=== PATIENT | female | born 1970 | race American Indian/Alaskan Native ===

== ENCOUNTER 2017-04-20 18:19 | Observation (INO) | payer BC, OTHER ==
[2017-04-20 18:19] VITALS: BMI 44.1
--- NOTE | 2017-04-20 18:32 | C.PDOC ---
History Of Present Illness 46 y/o female an employee of [employer] presents to the ED with complaints of anterior chest wall pain intermittently since last night. Pain is sharp 6/10 , occasionally radiates to left shoulder. Pt denies associated SOB, lightheadedness, dizziness, sweating, headache, nausea, vomiting, fever, chills , or any other complaints. No prior cardiac history. Patient with refractory HTN as per primary provider, also with hx of CAD maternal side. Time Seen by Provider: 04/20/17 18:23 Chief Complaint (Nursing): Chest Pain History Per: Patient History/Exam Limitations: no limitations Onset/Duration Of Symptoms: Hrs, Intermittent Episodes Current Symptoms Are (Timing): Still Present Severity: Moderate Pain Scale Rating Of: 6 Quality: "Pain" Associated Symptoms: denies: Nausea, Diaphoresis Modifying Factors: None Alleviating Factors: None Recent travel outside of the [place]: No Past Medical History Reviewed: Historical Data, Nursing Documentation, Vital Signs Vital Signs: Last Vital Signs Temp 98.9 F 04/20/17 18:21 Pulse 80 04/20/17 18:53 Resp 14 04/20/17 18:53 BP 176/111 H 04/20/17 18:53 Pulse Ox 100 04/20/17 18:53 - Medical History PMH: HTN Family History: States: Unknown Family Hx - Social History Hx Tobacco Use: No Hx Alcohol Use: Yes (SOCIAL) Hx Substance Use: No - Immunization History Hx Tetanus Toxoid Vaccination: Yes Hx Influenza Vaccination: No Hx Pneumococcal Vaccination: No Review Of Systems Except As Marked, All Systems Reviewed And Found Negative. Constitutional: Negative for: Fever, Chills, Sweats Cardiovascular: Positive for: Chest Pain. Negative for: Light Headedness Gastrointestinal: Negative for: Nausea, Vomiting Neurological: Negative for: Headache, Dizziness Physical Exam - Physical Exam Appears: Non-toxic, In Acute Distress, Other (obese) Skin: Warm, Dry, No Rash Head: Atraumatic, Normacephalic Neck: Normal, Normal ROM, Supple Chest: Symmetrical, Tenderness (anterior chest wall) Cardiovascular: Rhythm Regular, No Murmur Respiratory: Normal Breath Sounds, No Rales, No Rhonchi, No Wheezing Gastrointestinal/Abdominal: Normal Exam, Soft, No Tenderness Extremity: Normal ROM, No Pedal Edema Extremity: Bilateral: Atraumatic Neurological/Psych: Oriented x3, Normal Speech ED Course And Treatment - Laboratory Results Result Diagrams: 04/20/17 18:36 04/20/17 18:36 ECG: Interpreted By Me, Viewed By Me ECG Rhythm: Sinus Rhythm Interpretation Of ECG: left axis deviation, inferior Q waves Rate From EC (BPM) O2 Sat by Pulse Oximetry: 99 (room air) Pulse Ox Interpretation: Normal Progress Note: Plan: EKG, labs, CXR, UA, IV fluids Medical Decision Making Medical Decision Making: Spoke with Kenneth Watson, he request Dr. Hardy for cardiology and the hospitalist service. Disposition Discussed With DrDeshawn: Kenneth Watson - Disposition Disposition: HOSPITALIZED Disposition Time: 18:37 Condition: GUARDED - POA Present On Arrival: None - Clinical Impression Clinical Impression: Chest pain, EKG abnormality - Scribe Statement The provider has reviewed the documentation as recorded by the Vernell Malone Provider Attestation: All medical record entries made by the Dmitriibe were at my direction and personally dictated by me. I have reviewed the chart and agree that the record accurately reflects my personal performance of the history, physical exam, medical decision making, and the department course for this patient. I have also personally directed, reviewed, and agree with the discharge instructions and disposition. Decision To Admit - Pt Status Changed To: Hospital Disposition Of: Observation - . Bed Request Type: Telemetry Admitting Physician: Alfa Sanford Patient Diagnosis: Chest pain, EKG abnormality
[2017-04-20 18:41] LABS: BASO # 0.1 K/uL (0.0-0.2); BASO % 0.4 % (0.0-2.0); HEMATOCRIT 39.5 % (34.0-47.0); LYMPH # 1.8 K/uL (1.0-4.3); LYMPH % 11.8 % (20.0-40.0); MEAN CELL VOLUME 86.8 fL (81.0-99.0); MEAN CORPUSCULAR HEMOGLOBIN 27.8 pg (27.0-31.0); MEAN PLATELET VOLUME 8.9 fL (7.2-11.7); MONO # 0.3 K/uL (0.0-0.8); MONO % 2.2 % (0.0-10.0); WHITE BLOOD COUNT 14.8 K/uL (4.8-10.8)
[2017-04-20 18:50] LABS: CHLORIDE 106 mmol/L (98-107); POTASSIUM 3.6 mmol/L (3.6-5.2); SODIUM 137 mmol/L (132-148)
[2017-04-20 18:52] LABS: ALB/GLOB RATIO 1.1 (1.0-2.1); AST/SGOT 50 U/L (14-36); BILIRUBIN,TOTAL 0.5 mg/dL (0.2-1.3); BLOOD UREA NITROGEN 11 mg/dL (7-17); CARBON DIOXIDE 19 mmol/L (22-30); CHOLESTEROL 194 mg/dL (0-199); GFR AFRICAN-AMERICAN > 60; TOTAL PROTEIN 8.1 g/dL (6.3-8.3)
[2017-04-20 18:53] LABS: ALKALINE PHOSPHATASE 80 U/L (38-126); ALT/SGPT 15 U/L (9-52); CALCIUM 9.3 mg/dl (8.6-10.4); GLUCOSE,RANDOM 114 mg/dL (65-105)
[2017-04-20] MEDS ORDERED: Labetalol 25mg/5ml Syringe IVP STA (18:57)
[2017-04-20] MEDS ORDERED: Labetalol 25mg/5ml Syringe ONE (18:58)
--- NOTE | 2017-04-20 19:23 | CP.PCM.HP ---
History of Present Illness - History of Present Illness History of Present Illness: CC: chest pain HPI: 46 year old female with PMHx significant for HTN presents with chest pain of about 1 hr duration that began while resting last night. Patient states that she could not remember any strenuous activity at the time, but rather that she was cooking just prior to. She denies any identifiable stressors either. She states that she took an aspirin and then went to bed hoping that the pain would go away. She woke up this morning with the pain off and on through the day. She was concerned and then came to the ED. Patient states that the pain was initially a 6/10 and denied radiation. The pain was not exacerbated or relieved by anything. She denied nausea at the time, however she now admits to nausea approximately two hours prior to evaluation. When asked why she delayed coming to the ED, she states that she thought that it would resolve on it's own with rest. Patient admits to experiencing a similar pain several years ago, whereupon at that time, she went to bed and slept hoping that the pain would resolve on it own. Patient denies headaches, palpitations, subjective fevers, vomiting, abdominal pain, bowel changes, back pain, leg pain, swelling, recent travel, recent sickness or exposure to sick contacts, weight changes or appetite changes at this time. PMHx- as stated above PSHx- denies Fam Hx- Mom- vaginal cancer, HTN Social Hx- admits to social alcohol use, denies ever smoking or illicit drug use Meds: Nifedipine 90 mg daily Allergies- denies PMD: Dr. Watson Present on Admission - Present on Admission Any Indicators Present on Admission: No Review of Systems - Constitutional Constitutional: absent: Headache - EENT Eyes: absent: Blurred Vision, Change in Vision Ears: absent: Decreased Hearing Nose/Mouth/Throat: absent: Nasal Congestion - Cardiovascular Cardiovascular: Chest Pain. absent: Pain Radiating to Arm/Neck/Jaw, Leg Edema, Palpitations - Respiratory Respiratory: absent: Cough, Dyspnea, Dyspnea on Exertion - Gastrointestinal Gastrointestinal: Nausea. absent: Abdominal Pain, Vomiting - Musculoskeletal Musculoskeletal: absent: Abnormal Gait, Arthralgias - Integumentary Integumentary: absent: Dry Skin - Neurological Neurological: absent: Abnormal Hearing, Paresthesias - Endocrine Endocrine: absent: Change in Body Appearance, Fatigue, Palpitations - Hematologic/Lymphatic Hematologic: absent: Easy Bleeding, Easy Bruising Past Patient History - Infectious Disease Hx of Infectious Diseases: None - Past Social History Smoking Status: Never Smoked Alcohol: Social Drugs: Denies Home Situation {Lives}: With Family - CARDIAC Hx Hypertension: Yes - PSYCHIATRIC Hx Substance Use: No - SURGICAL HISTORY Hx Surgeries: No - ANESTHESIA Hx Anesthesia: No Meds Allergies/Adverse Reactions: Allergies Allergy/AdvReac Type Severity Reaction Status Date / Time No Known Allergies Allergy Verified 04/20/17 18:25 Physical Exam - Constitutional Appears: No Acute Distress - Head Exam Head Exam: ATRAUMATIC, NORMAL INSPECTION, NORMOCEPHALIC - Eye Exam Eye Exam: EOMI, Normal appearance, PERRL Pupil Exam: NORMAL ACCOMODATION - ENT Exam ENT Exam: Mucous Membranes Moist - Neck Exam Neck exam: Positive for: Full Rom Additional comments: acanthosis nigricans noted - Respiratory Exam Respiratory Exam: NORMAL BREATHING PATTERN. absent: Wheezes - Expanded Cardiovascular Exam Expanded Peripheral pulses: Dorsalis Pedis Left: 2+, Dorsalis Pedis Right: 2+ - GI/Abdominal Exam GI & Abdominal Exam: Normal Bowel Sounds, Soft. absent: Guarding, Tenderness - Extremities Exam Extremities exam: Positive for: full ROM, normal capillary refill, normal inspection, pedal pulses present. Negative for: calf tenderness, pedal edema, tenderness - Back Exam Back exam: FULL ROM, NORMAL INSPECTION Additional comments: hyperpigmented - Neurological Exam Neurological exam: Alert, CN II-XII Intact, Oriented x3 - Psychiatric Exam Psychiatric exam: Normal Affect, Normal Mood - Skin Skin Exam: Dry, Warm Additional comments: hyperpigmented patch posterior back Results - Vital Signs Recent Vital Signs: Last Vital Signs Temp 98.9 F 04/20/17 18:21 Pulse 80 04/20/17 18:53 Resp 14 04/20/17 18:53 BP 176/111 H 04/20/17 18:53 Pulse Ox 99 04/20/17 19:03 - Labs Result Diagrams: 04/20/17 18:36 04/20/17 18:36 Labs: Laboratory Results - last 24 hr 04/20/17 04/20/17 18:36 18:36 WBC 14.8 H D RBC 4.55 Hgb 12.6 Hct 39.5 MCV 86.8 MCH 27.8 MCHC 32.0 L RDW 14.0 Plt Count 343 D MPV 8.9 Neut % (Auto) 85.6 H Lymph % (Auto) 11.8 L [place] % (Auto) 2.2 Eos % (Auto) 0.0 Baso % (Auto) 0.4 Neut # 12.7 H Lymph # 1.8 [place] # 0.3 Eos # 0.0 Baso # 0.1 Sodium 137 Potassium 3.6 Chloride 106 Carbon Dioxide 19 L Anion Gap 16 BUN 11 Creatinine 0.8 Est GFR ( Amer) > 60 Est GFR (Non-Af Amer) > 60 Random Glucose 114 H Calcium 9.3 Total Bilirubin 0.5 AST 50 H D ALT 15 Alkaline Phosphatase 80 NT-Pro-B Natriuret Pep 357 Total Protein 8.1 Albumin 4.2 Globulin 4.0 H Albumin/Globulin Ratio 1.1 Triglycerides 67 Cholesterol 194 LDL Cholesterol Direct 81 HDL Cholesterol 70 Assessment & Plan (1) NSTEMI (non-ST elevated myocardial infarction) Assessment and Plan: Chest pain noted at rest. Resolved Admitted to telemetry floor Troponin elevated 1.4400. F/U MALAIKA 2-3 EKG findings indicative of NSR with Q waves noted, no ST segment elevations identified. Refer to EKG. F/U repeat EKGs. ASA 324 given in ED ASA 81 mg to continue, Plavix 300 mg daily to start and then Plavix 75 mg daily from 04/21 onwards, Metoprolol 25 mg PO daily, Zestril 5 mg PO daily, , Crestor 5 mg PO HS, Lovenox 90 mg SC Q12 Nitro x1 given for pain- Will hold going ahead to assess patient's pain source, frequency and severity. Dr. Hardy (Cardiology) consulted- F/U F/U AM labs, CK MB, Lipid panel, Hgb A1c, Thyroid studies CXR: No signs of acute disease Cont to monitor Status: Acute (2) HTN (hypertension) Assessment and Plan: Home medication: Procardia 90 mg PO daily. Will hold at this time. Labetalol 20 IV given in ED Currently on Metoprolol and Zestril for cardio protection. Continue to monitor Status: Chronic (3) Headache Assessment and Plan: Acetaminophen PRN Cont to monitor. Likely secondary to Nitro administration earlier. Status: Acute (4) Prophylactic measure Assessment and Plan: SCDS Lovenox 90 SC Q12 Pepcid 20 mg PO BID Cont to monitor Status: Acute
[2017-04-20 20:12] LABS: RBC URINE 10 /hpf (0-3); TRANSITIONAL EPITHIAL < 1 /hpf (0-3); URINE BACTERIA RARE (<OCC); URINE BILIRUBIN NEGATIVE (NEGATIVE); URINE BLOOD 1+ (NEGATIVE); URINE COLOR Yellow (YELLOW); URINE GLUCOSE (UA) NORMAL (Normal); URINE KETONE 1+ mg/dL (NEGATIVE); URINE LEUKOCYTE ESTERASE NEGATIVE Leu/uL (Negative); URINE PROTEIN 2+ mg/dL (NEGATIVE); URINE UROBILINOGEN NORMAL mg/dL (0.2-1.0); WBC URINE 2 /hpf (0-5)
[2017-04-20] MEDS ORDERED: Nitroglycerin 2% Ointment Foilpak UD TOP PRN (20:30)
[2017-04-20] MEDS: Metoprolol Succinate 25 mg XL Tab PO SCH (20:57)
[2017-04-20 21:49] VITALS: RESP 20
[2017-04-20] MEDS: Enoxaparin 100 mg Syringe SC SCH (21:59)
[2017-04-20] MEDS ORDERED: Rosuvastatin Calcium 2.5 mg Tab PO SCH (22:00)
[2017-04-21 07:28] LABS: BASO # 0.1 K/uL (0.0-0.2); BASO % 0.7 % (0.0-2.0); EOS % 0.2 % (0.0-4.0); HEMATOCRIT 34.2 % (34.0-47.0); LYMPH # 2.7 K/uL (1.0-4.3); LYMPH % 29.5 % (20.0-40.0); MEAN CELL VOLUME 86.6 fL (81.0-99.0); MEAN CORPUSCULAR HGB CONC 32.3 g/dL (33.0-37.0); MEAN PLATELET VOLUME 9.1 fL (7.2-11.7); MONO # 0.6 K/uL (0.0-0.8); MONO % 6.4 % (0.0-10.0); RED CELL DISTRIBUTION WIDTH 14.1 % (11.5-14.5)
[2017-04-21 07:35] LABS: CHLORIDE 107 mmol/L (98-107)
[2017-04-21 07:36] LABS: POTASSIUM 3.2 mmol/L (3.6-5.2); SODIUM 139 mmol/L (132-148)
[2017-04-21 07:38] LABS: BILIRUBIN,TOTAL 0.7 mg/dL (0.2-1.3); CARBON DIOXIDE 22 mmol/L (22-30); CHOLESTEROL 160 mg/dL (0-199); GFR AFRICAN-AMERICAN > 60
[2017-04-21 07:39] LABS: ALB/GLOB RATIO 1.1 (1.0-2.1); ALKALINE PHOSPHATASE 59 U/L (38-126); ALT/SGPT 33 U/L (9-52); AST/SGOT 204 U/L (14-36); BLOOD UREA NITROGEN 14 mg/dL (7-17); GLUCOSE,RANDOM 97 mg/dL (65-105); PHOSPHOROUS 3.8 mg/dL (2.5-4.5); TOTAL PROTEIN 6.8 g/dL (6.3-8.3)
[2017-04-21 08:10] LABS: THYROID STIMULATING HORMONE 0.97 mIU/L (0.46-4.68)
--- NOTE | 2017-04-21 08:46 | CP.PCM.CON ---
History of Present Illness - History of Present Illness History of Present Illness: I was asked to see patient by Dr. Tran. Patient is followed by Kenneth Watson APN who asked that I be contacted. Patient is a 46 year old female with a history of HTN who presents with chest pain, which started Saturday at 10 pm, pressure substernal with associated dyspnea. Patient states pain lasted for 30 minutes then resolved. Patient developed recurrent pain Saturday at 10 am and lasted throughout the day until she presented to ER at 7pm. EKG showed anterior, anterolateral and inferior infarction. Patient has been pain free since 7pm yesterday. Troponin elevated. Review of Systems - Constitutional Constitutional: absent: As Per HPI, Anorexia, Chills, Daytime Sleepiness, Excessive Sweating, Fatigue, Fever, Frequent Falls, Headache, Increased Appetite , Lethargy, Malaise, Night Sweats, Snoring, Sleep Apnea, Weight Gain, Weight Loss, Weakness, Other - EENT Eyes: absent: As Per HPI, Blind Spots, Blurred Vision, Change in Vision, Decreased Night Vision, Diplopia, Discharge, Dry Eye, Exophthalmos, Floaters, Irritation, Itchy Eyes, Loss of Peripheral Vision, Pain, Photophobia, Requires Corrective Lenses, Sees Flashes, Spots in Vision, Tunnel Vision, Other Visual Disturbances, Loss of Vision, Other Ears: absent: As Per HPI, Decreased Hearing, Ear Discharge, Ear Pain, Tinnitus, Abnormal Hearing, Disequilibrium, Dizziness, Other Nose/Mouth/Throat: absent: As Per HPI, Epistaxis, Nasal Congestion, Nasal Discharge, Nasal Obstruction, Nasal Trauma, Nose Pain, Post Nasal Drip, Sinus Pain, Sinus Pressure, Bleeding Gums, Change in Voice, Dental Pain, Dry Mouth, Dysphagia, Halitosis, Hoarsness, Lip Swelling, Mouth Lesions, Mouth Pain, Odynophagia, Sore Throat, Throat Swelling, Tongue Swelling, Facial Pain, Neck Pain, Neck Mass, Other - Breasts Breasts: absent: As Per HPI, Change in Shape, Mass, Pain, Nipple Discharge, Nipple Inversion, Skin Changes, Swelling, Other - Cardiovascular Cardiovascular: Dyspnea - Respiratory Respiratory: absent: As Per HPI, Cough, Dyspnea, Hemoptysis, Dyspnea on Exertion , Wheezing, Snoring, Stridor, Pain on Inspiration, Chest Congestion, Excessive Mucous Production, Change in Mucous Color, Pain with Coughing, Other - Gastrointestinal Gastrointestinal: absent: As Per HPI, Abdominal Pain, Belching, Bloating, Change in Bowel Habits, Change in Stool Character, Coffee Ground Emesis, Constipation, Cramping, Diarrhea, Dyspepsia, Dysphagia, Early Satiety, Excessive Flatus, Fecal Incontinence, Heartburn, Hematemesis, Hematochezia, Loose Stools, Melena, Nausea, Odynophagia, Temesmus, Vomiting, Other - Genitourinary Genitourinary: absent: As Per HPI, Change in Urinary Stream, Difficulty Urinating, Dysuria, Flank Pain, Hematuria, Pyuria, Nocturia, Urinary Incontinence, Urinary Frequency, Urinary Hesitance, Urinary Urgency, Voiding Freq/Small Amts, Freq UTI, Hx Renal/Bladder Calculi, Hx /Renal Surgery, Bladder Distension, Other - Musculoskeletal Musculoskeletal: absent: As Per HPI, Abnormal Gait, Arthralgias, Atrophy, Back Pain, Deformity, Joint Swelling, Limited Range of Motion, Loss of Height, Muscle Cramps, Muscle Weakness, Myalgias, Neck Pain, Numbness, Radiating Pain into Limb, Stiffness, Tingling, Other - Integumentary Integumentary: absent: As Per HPI, Acne, Alopecia, Bleeding Lesions, Change in Hair, Change in Nails, Change in Pigmentation, Changing Lesions, Dry Skin, Erythema, Furuncle, Hirsutism, Lesions, New Lesions, Non-Healing Lesions, Photosensitivity, Pruritus, Rash, Skin Pain, Skin Ulcer, Sores, Striae, Swelling , Unusual Bruising, Wounds, Jaundice, Other - Neurological Neurological: absent: As Per HPI, Abnormal Gait, Abnormal Hearing, Abnormal Movements, Abnormal Speech, Behavioral Changes, Burning Sensations, Confusion, Convulsions, Disequilibrium, Dizziness, Numbness, Focal Weakness, Frequent Falls , Headaches, Lack of Coordination, Loss of Vision, Memory Loss, Paresthesias, Radicular Pain, Restless Legs, Sensory Deficit, Syncope, Tingling, Tremor, Vertigo, Weakness, Other Visual Disturbances, Other - Psychiatric Psychiatric: absent: As Per HPI, Abnormal Sleep Pattern, Anhedonia, Anxiety, Auditory Hallucinations, Behavioral Changes, Change in Appetite, Change in Libido, Confusion, Depression, Difficulty Concentrating, Hallucinations, Homicidal Ideation, Hopelessness, Irritability, Memory Loss, Mood Swings, Panic Attacks, Paranoia, Suicidal Ideation, Visual Hallucinations, Tactile Hallucinations, Other - Endocrine Endocrine: absent: As Per HPI, Change in Body Appearance, Change in Libido, Cold Intolorance, Deepening of Voice, Excessive Sweating, Fatigue, Flushing, Heat Intolorance, Increase in Ring/Shoe/Hat Size, Palpitations, Polydipsia, Polyphagia, Polyuria, Other - Hematologic/Lymphatic Hematologic: absent: As Per HPI, Easy Bleeding, Easy Bruising, Lymphadenopathy, Other Past Patient History - Infectious Disease Hx of Infectious Diseases: None - Past Social History Smoking Status: Never Smoked Alcohol: Social Drugs: Denies Home Situation {Lives}: With Family - CARDIAC Hx Hypertension: Yes - MUSCULOSKELETAL/RHEUMATOLOGICAL Hx Falls: No - PSYCHIATRIC Hx Substance Use: No - SURGICAL HISTORY Hx Surgeries: No - ANESTHESIA Hx Anesthesia: No Meds Allergies/Adverse Reactions: Allergies Allergy/AdvReac Type Severity Reaction Status Date / Time No Known Allergies Allergy Verified 04/20/17 18:25 - Medications Medications: Current Medications Acetaminophen (Tylenol 325mg Tab) 650 mg PO Q6 PRN PRN Reason: Headache Last Admin: 04/20/17 23:44 Dose: 650 mg Aspirin (Ecotrin) 81 mg PO DAILY [facility] Clopidogrel Bisulfate (Plavix) 75 mg PO DAILY [facility] Last Admin: 04/20/17 20:18 Dose: 75 mg Enoxaparin Sodium (Lovenox) 90 mg SC Q12 [facility] Last Admin: 04/20/17 21:59 Dose: 90 mg Famotidine (Pepcid) 20 mg PO BID [facility] Insulin Human Regular (Novolin R) 0 unit SC ACHS [facility] PRN Reason: Protocol Lisinopril (Zestril) 5 mg PO DAILY [facility] Last Admin: 04/20/17 20:57 Dose: 5 mg Metoprolol Succinate (Toprol Xl) 25 mg PO DAILY [facility] Last Admin: 04/20/17 20:57 Dose: 25 mg Pneumococcal Polyvalent Vaccine (Pneumovax 23 Vaccine) 0.5 ml IM .ONCE ONE Stop: 04/23/17 10:01 Potassium Chloride (K-Dur 20 Meq Er Tab) 40 meq PO Q4H [facility] Stop: 04/21/17 12:31 Rosuvastatin Calcium (Crestor) 5 mg PO HS [facility] Last Admin: 04/20/17 21:59 Dose: 5 mg Physical Exam - Constitutional Appears: Non-toxic - Head Exam Head Exam: NORMAL INSPECTION - Eye Exam Eye Exam: Normal appearance - ENT Exam ENT Exam: Mucous Membranes Moist - Neck Exam Neck exam: Positive for: Full Rom - Respiratory Exam Respiratory Exam: NORMAL BREATHING PATTERN - Cardiovascular Exam Cardiovascular Exam: REGULAR RHYTHM - GI/Abdominal Exam GI & Abdominal Exam: Normal Bowel Sounds - Rectal Exam Rectal Exam: Deferred - Extremities Exam Extremities exam: Negative for: pedal edema - Back Exam Back exam: NORMAL INSPECTION - Neurological Exam Neurological exam: Alert, Oriented x3 - Psychiatric Exam Psychiatric exam: Normal Affect - Skin Skin Exam: Normal Color Results - Vital Signs Recent Vital Signs: Last Vital Signs Temp 98.2 F 04/21/17 07:00 Pulse 75 04/21/17 07:00 Resp 20 04/21/17 07:00 BP 116/74 04/21/17 07:00 Pulse Ox 98 04/21/17 07:00 - Labs Result Diagrams: 04/21/17 07:22 04/21/17 07:22 Labs: Laboratory Results - last 24 hr 04/20/17 04/20/17 04/21/17 19:22 20:00 00:41 WBC RBC Hgb Hct MCV MCH MCHC RDW Plt Count MPV Neut % (Auto) Lymph % (Auto) [place] % (Auto) Eos % (Auto) Baso % (Auto) Neut # Lymph # [place] # Eos # Baso # D-Dimer, Quantitative < 200 Sodium Potassium Chloride Carbon Dioxide Anion Gap BUN Creatinine Est GFR ( Amer) Est GFR (Non-Af Amer) Random Glucose Calcium Phosphorus Magnesium Total Bilirubin AST ALT Alkaline Phosphatase Total Creatine Kinase 817 H CK-MB (Mass) 81.5 H Troponin I, Quant 19.7000 H* Total Protein Albumin Globulin Albumin/Globulin Ratio Triglycerides Cholesterol LDL Cholesterol Direct HDL Cholesterol Free T4 TSH 3rd Generation Urine Color Yellow Urine Clarity Clear Urine pH 6.0 Ur Specific [place] 1.013 Urine Protein 2+ H Urine Glucose (UA) Normal Urine Ketones 1+ H Urine Blood 1+ H Urine Nitrate Negative Urine Bilirubin Negative Urine Urobilinogen Normal Ur Leukocyte Esterase Negative Urine WBC (Auto) 2 Urine RBC (Auto) 10 H Ur Squamous Epith Cells 4 Ur Transition Epith Cell < 1 Urine Bacteria Rare Urine HCG, Qual Negative 04/21/17 04/21/17 04/21/17 07:22 07:22 07:22 WBC 9.0 RBC 3.95 Hgb 11.0 Hct 34.2 MCV 86.6 MCH 28.0 MCHC 32.3 L RDW 14.1 Plt Count 290 MPV 9.1 Neut % (Auto) 63.2 Lymph % (Auto) 29.5 [place] % (Auto) 6.4 Eos % (Auto) 0.2 Baso % (Auto) 0.7 Neut # 5.7 Lymph # 2.7 [place] # 0.6 Eos # 0.0 Baso # 0.1 D-Dimer, Quantitative Sodium 139 Potassium 3.2 L Chloride 107 Carbon Dioxide 22 Anion Gap 13 BUN 14 Creatinine 1.0 Est GFR ( Amer) > 60 Est GFR (Non-Af Amer) 59 Random Glucose 97 Calcium 9.0 Phosphorus 3.8 Magnesium 2.0 Total Bilirubin 0.7 AST 204 H D ALT 33 Alkaline Phosphatase 59 Total Creatine Kinase 1204 H 1205 H CK-MB (Mass) 124 H 125 H Troponin I, Quant Total Protein 6.8 Albumin 3.5 Globulin 3.3 Albumin/Globulin Ratio 1.1 Triglycerides 132 D Cholesterol 160 LDL Cholesterol Direct 68 HDL Cholesterol 49 Free T4 TSH 3rd Generation 0.97 Urine Color Urine Clarity Urine pH Ur Specific [place] Urine Protein Urine Glucose (UA) Urine Ketones Urine Blood Urine Nitrate Urine Bilirubin Urine Urobilinogen Ur Leukocyte Esterase Urine WBC (Auto) Urine RBC (Auto) Ur Squamous Epith Cells Ur Transition Epith Cell Urine Bacteria Urine HCG, Qual 04/21/17 07:22 WBC RBC Hgb Hct MCV MCH MCHC RDW Plt Count MPV Neut % (Auto) Lymph % (Auto) [place] % (Auto) Eos % (Auto) Baso % (Auto) Neut # Lymph # [place] # Eos # Baso # D-Dimer, Quantitative Sodium Potassium Chloride Carbon Dioxide Anion Gap BUN Creatinine Est GFR ( Amer) Est GFR (Non-Af Amer) Random Glucose Calcium Phosphorus Magnesium Total Bilirubin AST ALT Alkaline Phosphatase Total Creatine Kinase CK-MB (Mass) Troponin I, Quant Total Protein Albumin Globulin Albumin/Globulin Ratio Triglycerides Cholesterol LDL Cholesterol Direct HDL Cholesterol Free T4 0.99 TSH 3rd Generation Urine Color Urine Clarity Urine pH Ur Specific [place] Urine Protein Urine Glucose (UA) Urine Ketones Urine Blood Urine Nitrate Urine Bilirubin Urine Urobilinogen Ur Leukocyte Esterase Urine WBC (Auto) Urine RBC (Auto) Ur Squamous Epith Cells Ur Transition Epith Cell Urine Bacteria Urine HCG, Qual - EKG Data EKG Interpreted by: Myself EKG shows normal: Sinus rhythm Assessment & Plan (1) Hypercholesterolemia Assessment and Plan: statin therapy Status: Acute (2) NSTEMI (non-ST elevated myocardial infarction) Assessment and Plan: currently pain free. Patient will benefit from initial aggressive medical therapy. STEPHANIE Mckeon. start Lovenox. will plan for cath tomorrow. Status: Acute (3) HTN (hypertension) Assessment and Plan: blood pressure control Status: Chronic
--- NOTE | 2017-04-21 08:46 | CP.PCM.CON ---
History of Present Illness - History of Present Illness History of Present Illness: Patient seen/examined. history of HTN who presents with chest pain, which started Saturday at 10 pm, pressure substernal with associated dyspnea. Patient states pain lasted for 30 minutes then resolved. Patient developed recurrent pain at 10 am and lasted throughout the day until she presented to ER at 7pm. EKG with anterior, anterolateral and inferior infarction. Patient has been pain free since 7pm yesterday. Troponin elevated. Plan: aggressive medical therapy with plan for cardiac cath. Treatment dose Lovenox. ASA. Will start Brilinta. echocardiogram. Cardiac cath tomorrow. NPO after lunch Past Patient History - Infectious Disease Hx of Infectious Diseases: None - Past Social History Smoking Status: Never Smoked Alcohol: Social Drugs: Denies Home Situation {Lives}: With Family - CARDIAC Hx Hypertension: Yes - MUSCULOSKELETAL/RHEUMATOLOGICAL Hx Falls: No - PSYCHIATRIC Hx Substance Use: No - SURGICAL HISTORY Hx Surgeries: No - ANESTHESIA Hx Anesthesia: No Meds Allergies/Adverse Reactions: Allergies Allergy/AdvReac Type Severity Reaction Status Date / Time No Known Allergies Allergy Verified 04/20/17 18:25 - Medications Medications: Current Medications Acetaminophen (Tylenol 325mg Tab) 650 mg PO Q6 PRN PRN Reason: Headache Last Admin: 04/20/17 23:44 Dose: 650 mg Aspirin (Ecotrin) 81 mg PO DAILY [facility] Clopidogrel Bisulfate (Plavix) 75 mg PO DAILY [facility] Last Admin: 04/20/17 20:18 Dose: 75 mg Enoxaparin Sodium (Lovenox) 90 mg SC Q12 [facility] Last Admin: 04/20/17 21:59 Dose: 90 mg Famotidine (Pepcid) 20 mg PO BID [facility] Insulin Human Regular (Novolin R) 0 unit SC ACHS [facility] PRN Reason: Protocol Lisinopril (Zestril) 5 mg PO DAILY [facility] Last Admin: 04/20/17 20:57 Dose: 5 mg Metoprolol Succinate (Toprol Xl) 25 mg PO DAILY [facility] Last Admin: 04/20/17 20:57 Dose: 25 mg Pneumococcal Polyvalent Vaccine (Pneumovax 23 Vaccine) 0.5 ml IM .ONCE ONE Stop: 04/23/17 10:01 Potassium Chloride (K-Dur 20 Meq Er Tab) 40 meq PO Q4H [facility] Stop: 04/21/17 12:31 Rosuvastatin Calcium (Crestor) 5 mg PO HS [facility] Last Admin: 04/20/17 21:59 Dose: 5 mg Results - Vital Signs Recent Vital Signs: Last Vital Signs Temp 98.2 F 04/21/17 07:00 Pulse 75 04/21/17 07:00 Resp 20 04/21/17 07:00 BP 116/74 04/21/17 07:00 Pulse Ox 98 04/21/17 07:00 - Labs Result Diagrams: 04/21/17 07:22 04/21/17 07:22 Labs: Laboratory Results - last 24 hr 04/20/17 04/20/17 04/21/17 19:22 20:00 00:41 WBC RBC Hgb Hct MCV MCH MCHC RDW Plt Count MPV Neut % (Auto) Lymph % (Auto) Otero % (Auto) Eos % (Auto) Baso % (Auto) Neut # Lymph # Otero # Eos # Baso # D-Dimer, Quantitative < 200 Sodium Potassium Chloride Carbon Dioxide Anion Gap BUN Creatinine Est GFR ( Amer) Est GFR (Non-Af Amer) Random Glucose Calcium Phosphorus Magnesium Total Bilirubin AST ALT Alkaline Phosphatase Total Creatine Kinase 817 H CK-MB (Mass) 81.5 H Troponin I, Quant 19.7000 H* Total Protein Albumin Globulin Albumin/Globulin Ratio Triglycerides Cholesterol LDL Cholesterol Direct HDL Cholesterol Free T4 TSH 3rd Generation Urine Color Yellow Urine Clarity Clear Urine pH 6.0 Ur Specific [place] 1.013 Urine Protein 2+ H Urine Glucose (UA) Normal Urine Ketones 1+ H Urine Blood 1+ H Urine Nitrate Negative Urine Bilirubin Negative Urine Urobilinogen Normal Ur Leukocyte Esterase Negative Urine WBC (Auto) 2 Urine RBC (Auto) 10 H Ur Squamous Epith Cells 4 Ur Transition Epith Cell < 1 Urine Bacteria Rare Urine HCG, Qual Negative 04/21/17 04/21/17 04/21/17 07:22 07:22 07:22 WBC 9.0 RBC 3.95 Hgb 11.0 Hct 34.2 MCV 86.6 MCH 28.0 MCHC 32.3 L RDW 14.1 Plt Count 290 MPV 9.1 Neut % (Auto) 63.2 Lymph % (Auto) 29.5 Otero % (Auto) 6.4 Eos % (Auto) 0.2 Baso % (Auto) 0.7 Neut # 5.7 Lymph # 2.7 Otero # 0.6 Eos # 0.0 Baso # 0.1 D-Dimer, Quantitative Sodium 139 Potassium 3.2 L Chloride 107 Carbon Dioxide 22 Anion Gap 13 BUN 14 Creatinine 1.0 Est GFR ( Amer) > 60 Est GFR (Non-Af Amer) 59 Random Glucose 97 Calcium 9.0 Phosphorus 3.8 Magnesium 2.0 Total Bilirubin 0.7 AST 204 H D ALT 33 Alkaline Phosphatase 59 Total Creatine Kinase 1204 H 1205 H CK-MB (Mass) 124 H 125 H Troponin I, Quant Total Protein 6.8 Albumin 3.5 Globulin 3.3 Albumin/Globulin Ratio 1.1 Triglycerides 132 D Cholesterol 160 LDL Cholesterol Direct 68 HDL Cholesterol 49 Free T4 TSH 3rd Generation 0.97 Urine Color Urine Clarity Urine pH Ur Specific [place] Urine Protein Urine Glucose (UA) Urine Ketones Urine Blood Urine Nitrate Urine Bilirubin Urine Urobilinogen Ur Leukocyte Esterase Urine WBC (Auto) Urine RBC (Auto) Ur Squamous Epith Cells Ur Transition Epith Cell Urine Bacteria Urine HCG, Qual 04/21/17 07:22 WBC RBC Hgb Hct MCV MCH MCHC RDW Plt Count MPV Neut % (Auto) Lymph % (Auto) Otero % (Auto) Eos % (Auto) Baso % (Auto) Neut # Lymph # Otero # Eos # Baso # D-Dimer, Quantitative Sodium Potassium Chloride Carbon Dioxide Anion Gap BUN Creatinine Est GFR ( Amer) Est GFR (Non-Af Amer) Random Glucose Calcium Phosphorus Magnesium Total Bilirubin AST ALT Alkaline Phosphatase Total Creatine Kinase CK-MB (Mass) Troponin I, Quant Total Protein Albumin Globulin Albumin/Globulin Ratio Triglycerides Cholesterol LDL Cholesterol Direct HDL Cholesterol Free T4 0.99 TSH 3rd Generation Urine Color Urine Clarity Urine pH Ur Specific [place] Urine Protein Urine Glucose (UA) Urine Ketones Urine Blood Urine Nitrate Urine Bilirubin Urine Urobilinogen Ur Leukocyte Esterase Urine WBC (Auto) Urine RBC (Auto) Ur Squamous Epith Cells Ur Transition Epith Cell Urine Bacteria Urine HCG, Qual
--- NOTE | 2017-04-21 08:56 | CP.PCM.PN ---
Subjective - Date & Time of Evaluation Date of Evaluation: 04/21/17 Time of Evaluation: 07:30 - Subjective Subjective: PGY2 Medicine Note - Dr. Tran's service: Patient seen and examined at bedside this AM. Patient denies any chest pain currently. She says the pain went away once she came here and got the Labetalol , plavix and nitrobid. Patient said she has not felt short of breath at all even last night. Patient denies fever, chills, palpitations, nausea, vomiting, diarrhea, constipation. Objective - Vital Signs/Intake and Output Vital Signs (last 24 hours): Temp Pulse Resp BP Pulse Ox 98.2 F 75 20 116/74 98 04/21/17 07:00 04/21/17 07:00 04/21/17 07:00 04/21/17 07:00 04/21/17 07:00 - Medications Medications: Current Medications Acetaminophen (Tylenol 325mg Tab) 650 mg PO Q6 PRN PRN Reason: Headache Last Admin: 04/20/17 23:44 Dose: 650 mg Aspirin (Ecotrin) 81 mg PO DAILY [facility] Enoxaparin Sodium (Lovenox) 90 mg SC Q12 [facility] Last Admin: 04/20/17 21:59 Dose: 90 mg Famotidine (Pepcid) 20 mg PO BID [facility] Insulin Human Regular (Novolin R) 0 unit SC ACHS [facility] PRN Reason: Protocol Lisinopril (Zestril) 5 mg PO DAILY [facility] Last Admin: 04/20/17 20:57 Dose: 5 mg Metoprolol Succinate (Toprol Xl) 25 mg PO DAILY [facility] Last Admin: 04/20/17 20:57 Dose: 25 mg Pneumococcal Polyvalent Vaccine (Pneumovax 23 Vaccine) 0.5 ml IM .ONCE ONE Stop: 04/23/17 10:01 Potassium Chloride (K-Dur 20 Meq Er Tab) 40 meq PO Q4H [facility] Stop: 04/21/17 12:31 Rosuvastatin Calcium (Crestor) 5 mg PO HS [facility] Last Admin: 04/20/17 21:59 Dose: 5 mg Ticagrelor (Brilinta) 90 mg PO BID [facility] - Labs Labs: 04/21/17 07:22 04/21/17 07:22 - Constitutional Appears: Non-toxic, No Acute Distress - Head Exam Head Exam: NORMAL INSPECTION - Eye Exam Eye Exam: EOMI - ENT Exam ENT Exam: Mucous Membranes Moist - Respiratory Exam Respiratory Exam: Clear to Ausculation Bilateral, NORMAL BREATHING PATTERN. absent: Chest Wall Tenderness, Rales, Rhonchi, Wheezes - Cardiovascular Exam Cardiovascular Exam: REGULAR RHYTHM, +S1, +S2. absent: Gallop, Rubs, Murmur - GI/Abdominal Exam GI & Abdominal Exam: Soft, Normal Bowel Sounds. absent: Tenderness - Extremities Exam Extremities Exam: absent: Pedal Edema - Neurological Exam Neurological Exam: Alert, Awake, Oriented x3 - Psychiatric Exam Psychiatric exam: Normal Affect, Normal Mood - Skin Skin Exam: Normal Color, Warm Assessment and Plan - Assessment and Plan (Free Text) Assessment: (1) NSTEMI (non-ST elevated myocardial infarction) Assessment and Plan: 04/21: 1st MALAIKA 1.44, 2nd MALAIKA 19.7, f/u 3rd MALAIKA Log Scaler, Dr. Hardy, saw patient. He recommends ECHO and cardiac cath tomorrow. Patient will be NPO past lunch. Help appreciated Plavix switched to Brilinta 90mg PO BID 04/20: Chest pain noted at rest. Resolved Admitted to telemetry floor EKG findings indicative of NSR with Q waves noted, no ST segment elevations identified. Refer to EKG. F/U repeat EKGs. ASA 324 given in ED ASA 81 mg to continue, Plavix 300 mg daily to start and then Plavix 75 mg daily from 04/21 onwards, Metoprolol 25 mg PO daily, Zestril 5 mg PO daily, , Crestor 5 mg PO HS, Lovenox 90 mg SC Q12 Nitro x1 given for pain- Will hold going ahead to assess patient's pain source, frequency and severity. Dr. Hardy (Cardiology) consulted- help appreciated F/U AM labs, CK MB, Lipid panel, Hgb A1c, Thyroid studies CXR: No signs of acute disease Cont to monitor Status: Acute (2) HTN (hypertension) Assessment and Plan: Home medication: Procardia 90 mg PO daily. Will hold at this time. Labetalol 20 IV given in ED Currently on Metoprolol and Zestril for cardio protection. Continue to monitor Status: Chronic (3) Headache Assessment and Plan: Acetaminophen PRN Cont to monitor. Likely secondary to Nitro administration earlier. Status: Acute (4) DM II Assessment and Plan: Per her PMD, Dr. Watson, patient has DM Patient never knew about DM and does not take any meds Accuchecks RISS F/U HgbA1C Status: Acute (5) Prophylactic measure Assessment and Plan: SCDS Lovenox 90 SC Q12 Pepcid 20 mg PO BID Cont to monitor Status: Acute
[2017-04-21] MEDS: Potassium Chloride 20 mEq ER Tab PO SCH ×2 (09:17→12:19)
[2017-04-21] MEDS: Enoxaparin 100 mg Syringe SC SCH ×2 (09:18→22:51)
--- NOTE | 2017-04-21 09:32 | RAD ---
HISTORY: chest pain COMPARISON: No prior. TECHNIQUE: Chest PA and lateral FINDINGS: LUNGS: The lungs are well inflated and clear. PLEURA: No significant pleural effusion identified. No pneumothorax apparent. CARDIOVASCULAR: Normal. OSSEOUS STRUCTURES: No significant abnormalities. VISUALIZED UPPER ABDOMEN: Normal. OTHER FINDINGS: None. IMPRESSION: No active pulmonary disease.
[2017-04-21] MEDS: Metoprolol Succinate 25 mg XL Tab PO SCH (10:00)
[2017-04-21] MEDS ORDERED: NIFEdipine 90 mg ER Tab PO SCH (10:00)
[2017-04-21] MEDS: (Novolin R) Insulin Human Regular 100 units/ml vial SC SCH (17:30)
[2017-04-22 00:21] VITALS: O2SAT 100
[2017-04-22 06:34] LABS: BASO # 0.1 K/uL (0.0-0.2); BASO % 0.8 % (0.0-2.0); EOS % 0.3 % (0.0-4.0); HEMATOCRIT 36.7 % (34.0-47.0); LYMPH # 3.1 K/uL (1.0-4.3); LYMPH % 33.5 % (20.0-40.0); MEAN CELL VOLUME 86.7 fL (81.0-99.0); MEAN CORPUSCULAR HGB CONC 32.3 g/dL (33.0-37.0); MEAN PLATELET VOLUME 9.1 fL (7.2-11.7); MONO # 0.6 K/uL (0.0-0.8); MONO % 6.9 % (0.0-10.0); WHITE BLOOD COUNT 9.3 K/uL (4.8-10.8)
[2017-04-22 06:44] LABS: CHLORIDE 107 mmol/L (98-107); SODIUM 138 mmol/L (132-148)
[2017-04-22 06:46] LABS: AST/SGOT 120 U/L (14-36); BILIRUBIN,TOTAL 0.8 mg/dL (0.2-1.3); CARBON DIOXIDE 22 mmol/L (22-30); GFR AFRICAN-AMERICAN > 60
[2017-04-22 06:47] LABS: ALKALINE PHOSPHATASE 52 U/L (38-126); ALT/SGPT 28 U/L (9-52); BLOOD UREA NITROGEN 18 mg/dL (7-17); CALCIUM 8.7 mg/dl (8.6-10.4); GLUCOSE,RANDOM 79 mg/dL (65-105); TOTAL PROTEIN 7.2 g/dL (6.3-8.3)
[2017-04-22 06:54] LABS: POTASSIUM 4.7 mmol/L (3.6-5.2)
[2017-04-22] MEDS: (Novolin R) Insulin Human Regular 100 units/ml vial SC SCH ×2 (07:18→12:30)
--- NOTE | 2017-04-22 07:56 | CP.PCM.PN ---
Subjective - Date & Time of Evaluation Date of Evaluation: 04/22/17 Time of Evaluation: 07:35 - Subjective Subjective: patient has no current chest pain. troponin noted Objective - Vital Signs/Intake and Output Vital Signs (last 24 hours): Temp Pulse Resp BP Pulse Ox 98.5 F 72 20 137/97 H 100 04/21/17 23:16 04/21/17 23:16 04/21/17 23:16 04/21/17 23:16 04/21/17 23:16 - Medications Medications: Current Medications Acetaminophen (Tylenol 325mg Tab) 650 mg PO Q6 PRN PRN Reason: Headache Last Admin: 04/20/17 23:44 Dose: 650 mg Aspirin (Ecotrin) 81 mg PO DAILY [facility] Last Admin: 04/21/17 09:16 Dose: 81 mg Enoxaparin Sodium (Lovenox) 90 mg SC Q12 [facility] Last Admin: 04/21/17 22:51 Dose: 90 mg Famotidine (Pepcid) 20 mg PO BID [facility] Last Admin: 04/21/17 18:02 Dose: 20 mg Insulin Human Regular (Novolin R) [address] [facility] PRN Reason: Protocol Last Admin: 04/22/17 07:18 Dose: Not Given Lisinopril (Zestril) 5 mg PO DAILY [facility] Last Admin: 04/21/17 09:16 Dose: 5 mg Metoprolol Succinate (Toprol Xl) 25 mg PO DAILY [facility] Last Admin: 04/21/17 10:00 Dose: 25 mg Pneumococcal Polyvalent Vaccine (Pneumovax 23 Vaccine) 0.5 ml IM .ONCE ONE Stop: 04/23/17 10:01 Rosuvastatin Calcium (Crestor) 5 mg PO HS [facility] Last Admin: 04/21/17 22:51 Dose: 5 mg Ticagrelor (Brilinta) 90 mg PO BID [facility] Last Admin: 04/21/17 18:02 Dose: 90 mg - Labs Labs: 04/22/17 06:19 04/22/17 06:19 - Constitutional Appears: Non-toxic - Head Exam Head Exam: NORMAL INSPECTION - Eye Exam Eye Exam: Normal appearance - ENT Exam ENT Exam: Mucous Membranes Moist - Neck Exam Neck Exam: Full ROM - Respiratory Exam Respiratory Exam: NORMAL BREATHING PATTERN - Cardiovascular Exam Cardiovascular Exam: REGULAR RHYTHM - GI/Abdominal Exam GI & Abdominal Exam: Normal Bowel Sounds - Rectal Exam Rectal Exam: Deferred - Extremities Exam Extremities Exam: absent: Pedal Edema - Back Exam Back Exam: NORMAL INSPECTION - Neurological Exam Neurological Exam: Alert - Psychiatric Exam Psychiatric exam: Normal Affect - Skin Skin Exam: Normal Color Assessment and Plan (1) NSTEMI (non-ST elevated myocardial infarction) Assessment & Plan: troponin indicative of extensive [place]. The patient has high risk cardiovascular features and requires cardiac catheterization and likely coronary intervention. I discussed with patient, she would like to be transferred to [facility] [place]. I discussed risks with the patient. will comply with patient wishes. Status: Acute (2) Hypercholesterolemia Assessment & Plan: statin therapy Status: Acute (3) HTN (hypertension) Assessment & Plan: blood pressure control Status: Chronic
[2017-04-22 08:03] VITALS: BP 146/86; PULSE 67; TEMP 98.1
[2017-04-22] MEDS: Metoprolol Succinate 25 mg XL Tab PO SCH (09:00)
[2017-04-22] MEDS: Enoxaparin 100 mg Syringe SC SCH (09:33)
--- NOTE | 2017-04-22 17:55 | CP.PCM.PN ---
Subjective - Date & Time of Evaluation Date of Evaluation: 04/22/17 Time of Evaluation: 09:00 - Subjective Subjective: PGY1 Medicine Note - Dr. Tran's service: Patient seen and examined at bedside this AM. Patient denies any chest pain currently. She states she has not felt chest pain since she has been at the hospital. Patient denies fever, chills, palpitations, shortness of breath, nausea, and vomiting. Objective - Vital Signs/Intake and Output Vital Signs (last 24 hours): Temp Pulse Resp BP Pulse Ox 98.1 F 67 20 146/86 100 04/22/17 08:02 04/22/17 08:02 04/22/17 08:02 04/22/17 08:02 04/22/17 08:02 Intake and Output: 04/22/17 04/22/17 06:59 18:59 Intake Total 150 Balance 150 - Labs Labs: 04/22/17 06:19 04/22/17 06:19 - Constitutional Appears: Well, No Acute Distress - Respiratory Exam Respiratory Exam: Clear to Ausculation Bilateral, NORMAL BREATHING PATTERN - Cardiovascular Exam Cardiovascular Exam: REGULAR RHYTHM. absent: JVD - GI/Abdominal Exam GI & Abdominal Exam: Soft, Tenderness, Normal Bowel Sounds - Neurological Exam Neurological Exam: Alert, Awake, Oriented x3 - Psychiatric Exam Psychiatric exam: Normal Affect, Normal Mood Assessment and Plan - Assessment and Plan (Free Text) Assessment: 46 year old female with PMHx significant for HTN presents presented to the ED on 04/20/17 with non-constant chest pain that had started the night prior. Plan: 1.) NSTEMI (non-ST elevated myocardial infarction) * Dr. Hardy (Cardiology) consulted- help appreciated * F/U cardiac cath (04/22/17) * F/U ECHO (04/21/17) * 04/21/17:1st MALAIKA 1.44, 2nd MALAIKA 19.7, f/u 3rd MALAIKA * 04/20/17 :EKG findings indicative of NSR with Q waves noted, no ST segment elevations identified. Refer to EKG. F/U repeat EKGs. * ASA 81 mg * Brilinta 90mg PO BID * Metoprolol 25 mg PO daily, * Lisinopril 5 mg PO daily * Crestor 5 mg PO HS, * Lovenox 90 mg SC Q12- held 04/22/17 * Nitro x1 given for pain- Will hold going ahead to assess patient's pain source , frequency and severity. * CK MB: 43.7 trending down from 53.6 (04/21/17) * F/U: Thyroid studies, Lipid Panel, Hgb A1c * CXR: No signs of acute disease 2.) Hypertension * Home medication: Procardia 90 mg PO daily. Will hold at this time. * Labetalol 20 IV given in ED * Currently on Metoprolol and Zestril for cardio protection. 3.) DM II * Per her PMD, Dr. Watson, patient has DM * Patient never knew about DM and does not take any meds * Accuchecks * RISS * F/U HgbA1C 4.) Headache * Acetaminophen PRN * Cont to monitor. * Likely secondary to Nitro administration earlier on admission. 5.) Prophylactic measure * Lovenox 90 SC Q12 * Pepcid 20 mg PO BID
--- NOTE | 2017-04-23 00:02 | CP.PCM.DIS ---
Provider - Provider Date of Admission: 04/20/17 19:01 Attending physician: Alfa Sanford MD Primary care physician: Dr. Watson Consults: Dr. Hardy - cardiology Time Spent in preparation of Discharge (in minutes): 35 Diagnosis - Discharge Diagnosis (1) NSTEMI (non-ST elevated myocardial infarction) Status: Acute Comment: Transfered to [facility] [place] for further intervention (cardiac cath) Hospital Course - Lab Results Lab Results: Most Recent Lab Values WBC 9.3 K/uL (4.8-10.8) 04/22/17 06:19 RBC 4.23 Mil/uL (3.80-5.20) 04/22/17 06:19 Hgb 11.8 g/dL (11.0-16.0) 04/22/17 06:19 Hct 36.7 % (34.0-47.0) 04/22/17 06:19 MCV 86.7 fL (81.0-99.0) 04/22/17 06:19 MCH 28.0 pg (27.0-31.0) 04/22/17 06:19 MCHC 32.3 g/dL (33.0-37.0) L 04/22/17 06:19 RDW 14.0 % (11.5-14.5) 04/22/17 06:19 Plt Count 326 K/uL (130-400) 04/22/17 06:19 MPV 9.1 fL (7.2-11.7) 04/22/17 06:19 Neut % (Auto) 58.5 % (50.0-75.0) 04/22/17 06:19 Lymph % (Auto) 33.5 % (20.0-40.0) 04/22/17 06:19 [place] % (Auto) 6.9 % (0.0-10.0) 04/22/17 06:19 Eos % (Auto) 0.3 % (0.0-4.0) 04/22/17 06:19 Baso % (Auto) 0.8 % (0.0-2.0) 04/22/17 06:19 Neut # 5.4 K/uL (1.8-7.0) 04/22/17 06:19 Lymph # 3.1 K/uL (1.0-4.3) 06/19/17 06:19 [place]an # 0.6 K/uL (0.0-0.8) 04/22/17 06:19 Eos # 0.0 K/uL (0.0-0.7) 04/22/17 06:19 Baso # 0.1 K/uL (0.0-0.2) 04/22/17 06:19 D-Dimer, Quantitative < 200 ng/mlDDU (0-243) 04/20/17 19:22 Sodium 138 mmol/L (132-148) 04/22/17 06:19 Potassium 4.7 mmol/L (3.6-5.2) 04/22/17 06:19 Chloride 107 mmol/L (98-107) 04/22/17 06:19 Carbon Dioxide 22 mmol/L (22-30) 04/22/17 06:19 Anion Gap 14 (10-20) 04/22/17 06:19 BUN 18 mg/dL (7-17) H 04/22/17 06:19 Creatinine 1.0 MG/DL (0.7-1.2) 04/22/17 06:19 Est GFR ( Amer) > 60 04/22/17 06:19 Est GFR (Non-Af Amer) 59 04/22/17 06:19 POC Glucose (mg/dL) 94 mg/dL (65-110) 04/22/17 11:14 Random Glucose 79 mg/dL (65-105) 04/22/17 06:19 Hemoglobin A1c 5.5 % (4.2-6.5) 04/21/17 07:22 Calcium 8.7 mg/dl (8.6-10.4) 04/22/17 06:19 Phosphorus 3.8 mg/dL (2.5-4.5) 04/21/17 07:22 Magnesium 2.0 mg/dL (1.6-2.3) 04/21/17 07:22 Total Bilirubin 0.8 mg/dL (0.2-1.3) 04/22/17 06:19 AST 120 U/L (14-36) H D 04/22/17 06:19 ALT 28 U/L (9-52) 04/22/17 06:19 Alkaline Phosphatase 52 U/L (38-126) 04/22/17 06:19 Total Creatine Kinase 739 U/L (30-135) H 04/22/17 00:15 CK-MB (Mass) 43.7 ng/mL (0.0-3.38) H 04/22/17 00:15 Troponin I 34.4000 ng/mL (0.00-0.120) H* 04/21/17 07:22 Troponin I, Quant 22.7000 ng/mL (0.00-0.120) H* 04/22/17 00:15 NT-Pro-B Natriuret Pep 357 pg/mL (0-450) 04/20/17 18:36 Total Protein 7.2 g/dL (6.3-8.3) 04/22/17 06:19 Albumin 3.5 g/dL (3.5-5.0) 04/22/17 06:19 Globulin 3.6 gm/dL (2.2-3.9) 04/22/17 06:19 Albumin/Globulin Ratio 1.0 (1.0-2.1) 04/22/17 06:19 Triglycerides 132 mg/dL (0-149) D 04/21/17 07:22 Cholesterol 160 mg/dL (0-199) 04/21/17 07:22 LDL Cholesterol Direct 68 mg/dL (0-129) 04/21/17 07:22 HDL Cholesterol 49 mg/dL (30-70) 04/21/17 07:22 Free T4 0.99 ng/dL (0.78-2.19) 04/21/17 07:22 TSH 3rd Generation 0.97 mIU/L (0.46-4.68) 04/21/17 07:22 Urine Color Yellow (YELLOW) 04/20/17 20:00 Urine Clarity Clear (Clear) 04/20/17 20:00 Urine pH 6.0 (5.0-8.0) 04/20/17 20:[address] Ur Specific [employer] [place] 1.013 (1.003-1.030) 04/20/17 20:00 Urine Protein 2+ mg/dL (NEGATIVE) H 04/20/17 20:00 Urine Glucose (UA) Normal mg/dL (Normal) 04/20/17 20:00 Urine Ketones 1+ mg/dL (NEGATIVE) H 04/20/17 20:00 Urine Blood 1+ (NEGATIVE) H 04/20/17 20:00 Urine Nitrate Negative (NEGATIVE) 04/20/17 20:00 Urine Bilirubin Negative (NEGATIVE) 04/20/17 20:00 Urine Urobilinogen Normal mg/dL (0.2-1.0) 04/20/17 20:00 Ur Leukocyte Esterase Negative Vladimir/uL (Negative) 04/20/17 20:00 Urine WBC (Auto) 2 /hpf (0-5) 04/20/17 20:00 Urine RBC (Auto) 10 /hpf (0-3) H 04/20/17 20:00 Ur Squamous Epith Cells 4 /hpf (0-5) 04/20/17 20:00 Ur Transition Epith Cell < 1 /hpf (0-3) 04/20/17 20:00 Urine Bacteria Rare (<OCC) 04/20/17 20:00 Urine HCG, Qual Negative (NEGATIVE) 04/20/17 20:00 - Hospital Course Hospital Course: PMHx- as stated above PSHx- denies Fam Hx- Mom- vaginal cancer, HTN Social Hx- admits to social alcohol use, denies ever smoking or illicit drug use Meds: Nifedipine 90 mg daily Allergies- denies PMD: Dr. Watson On admission: 46 year old female with PMHx significant for HTN presents with chest pain of about 1 hr duration that began while resting last night. Patient states that she could not remember any strenuous activity at the time, but rather that she was cooking just prior to. She denies any identifiable stressors either. She states that she took an aspirin and then went to bed hoping that the pain would go away. She woke up this morning with the pain off and on through the day. She was concerned and then came to the ED. Patient states that the pain was initially a 6/10 and denied radiation. The pain was not exacerbated or relieved by anything. She denied nausea at the time, however she now admits to nausea approximately two hours prior to evaluation. When asked why she delayed coming to the ED, she states that she thought that it would resolve on it's own with rest. Patient admits to experiencing a similar pain several years ago, whereupon at that time, she went to bed and slept hoping that the pain would resolve on it own. Patient denies headaches, palpitations, subjective fevers, vomiting, abdominal pain, bowel changes, back pain, leg pain, swelling, recent travel, recent sickness or exposure to sick contacts, weight changes or appetite changes at this time. During Hospital Stay: EKG findings indicative of NSR with Q waves noted, no ST segment elevations identified. Troponins elevated to a max of 28 then started to downtrend. The last troponin was 22.7. Cardiology Dr. Hardy was consulted. Patient was given aspirin and therapeutic lovenox. She was given Nitro SL prn chest pain. Patient was transferred to [facility] [place] for further intervention (cardiac cath). Blood pressure was controlled with Metoprolol and Zestril. Per the patient's primary she has diabetes but the patient was not aware and was not taking medications. HbA1c 5.5. Discharge Exam - Head Exam Head Exam: NORMAL INSPECTION Additional comments: Exam was done at time of transfer. EMTALA signed and placed in chart Discharge Plan - Follow Up Plan Condition: GUARDED Disposition: Trans to Other Acute Care Hosp
--- NOTE | 2017-04-23 07:50 | CARD ---
APPROVED REPORT EXAM: Two-dimensional and M-mode echocardiogram with Doppler and color Doppler. Other Information Quality : GoodRhythm : NSR INDICATION Chest Pain Palpitations SOB RISK FACTORS Hypertension M-Mode DIMENSIONS RVDd1.70 (2.1-3.2cm)Left Atrium (MM)3.13 (2.5-4.0cm) IVSd1.52 (0.7-1.1cm)Aortic Root2.70 (2.2-3.7cm) LVDd4.40 (4.0-5.6cm)Aortic Cusp Exc.1.91 (1.5-2.0cm) PWd1.70 (0.7-1.1cm)FS (%) 48 % LVDs2.31 (2.0-3.8cm)LVEF (%)79 (>50%) Mitral Valve MV E Vcuadndw69.8cm/sMV A Ongdxhyn89.3cm/sE/A ratio0.8 TDI E/Lateral E'0.0E/Medial E'0.0 Tricuspid Valve TR Peak [id number]/sTR Peak Gr.[id number] LEFT VENTRICLE The left ventricle is normal size. There is moderate concentric left ventricular hypertrophy. The left ventricular function is normal. The left ventricular ejection fraction is within the normal range. The Ejection Fraction is 60-65%. No regional wall motion abnormalities noted. Tissue Doppler imaging reveals abnormal left ventricular diastolic dysfunction. No left ventricle thrombus noted on this study. There is no ventricular septal defect visualized. There is no left ventricular aneurysm. There is no mass noted in the left ventricle. RIGHT VENTRICLE The right ventricle is normal size. There is normal right ventricular wall thickness. The right ventricular systolic function is normal. ATRIA The left atrium size is normal. The right atrium size is normal. The interatrial septum is intact with no evidence for an atrial septal defect. AORTIC VALVE The aortic valve is normal in structure and function. No aortic regurgitation is present. There is no aortic valvular stenosis. There is no aortic valvular vegetation. MITRAL VALVE The mitral valve is normal in structure and function. There is no evidence of mitral valve prolapse. There is no mitral valve stenosis. There is no mitral valve regurgitation noted. TRICUSPID VALVE The tricuspid valve is normal in structure and function. There is no tricuspid valve regurgitation noted. There is no tricuspid valve prolapse or vegetation. There is no tricuspid valve stenosis. PULMONIC VALVE The pulmonary valve is normal in structure and function. There is no pulmonic valvular regurgitation. There is no pulmonic valvular stenosis. GREAT VESSELS The aortic root is normal in size. The ascending aorta is normal in size. The pulmonary artery is normal. The IVC is normal in size and collapses >50% with inspiration. PERICARDIAL EFFUSION The pericardium appears normal. There is no pleural effusion. <Conclusion> The left ventricle is normal size. There is moderate concentric left ventricular hypertrophy. The left ventricular function is normal. The left ventricular ejection fraction is within the normal range. The Ejection Fraction is 60-65%.
--- NOTE | 2017-04-23 07:57 | CARD ---
APPROVED REPORT EKG Measurement Heart [id number] PA [id number] <Conclusion> Normal sinus rhythm Left axis deviation Inferior infarct, age undetermined Anterolateral infarct, age undetermined Prolonged QT Abnormal ECG
--- NOTE | 2017-04-23 07:58 | CARD ---
APPROVED REPORT EKG Measurement Heart [id number] MT [id number] <Conclusion> Normal sinus rhythm Left axis deviation Minimal voltage criteria for LVH, may be normal variant Inferior infarct, age undetermined Anterolateral infarct, age undetermined Prolonged QT Abnormal ECG
[2017-04-23] MEDS ORDERED: Pneumococcal 23-Valent Vaccine IM ONE (10:00)
--- NOTE | 2017-04-23 21:31 | CARD ---
APPROVED REPORT EKG Measurement Heart [id number] IN [id number] <Conclusion> Normal sinus rhythm Possible Left atrial enlargement Left axis deviation Left ventricular hypertrophy Inferior infarct, age undetermined Anterior infarct, age undetermined Abnormal ECG
== END 2017-04-22 13:59 | disposition short-term general hospital (02) ==
LOC: C.ER 18:19 → C.6T 19:01
PROVIDERS: ADMIT Internal Medicine; ATTEND Internal Medicine
DX: I21.4 Non-ST elevation (NSTEMI) myocardial infarction (principal); I10 Essential (primary) hypertension; E11.9 Type 2 diabetes mellitus without complications
CPT/HCPCS: 36415; 71020; 80053; 80061; 81001; 82550; 82553; 82948; 83036; 83735; 83880; 84100; 84439; 84443; 84484; 84703; 85025; 85378; 93306; 96374; 99285; G0378; J1650